=== PATIENT | female | born 1960 | race Caucasian/White ===

== ENCOUNTER 2017-02-14 17:21 | Emergency (ER) | payer MEDICARE, OTHER ==
[2017-02-14] MEDS ORDERED: ASPIRIN 325 MG TABLET.DR PO ONE (17:50)
[2017-02-14 17:51] LABS: Urine Bilirubin Negative (NEGATIVE); Urine Blood Negative /ul (NEGATIVE); Urine Ketone Negative (NEGATIVE); Urine Nitrite Negative (NEGATIVE); Urine Protein Negative (NEGATIVE); Urine Specific Gravity 1.015 SP.GR. (1.005-1.010); Urine Urobilinogen Normal (NORMAL)
[2017-02-14 17:55] LABS: Hemoglobin 11.8 gm/dL (12.5-16.0); Mean Cell Volume 92.1 fl (78-100); Mean Corpuscular Hemoglobin 31.1 pg (27-31); Mean Corpuscular Hgb Conc 33.7 g/dl (32-36); Mean Platelet Volume 8.4 fl (6.0-9.5); Neutrophil # 3.8 K/mm3 (1.3-6.0); Platelet Count 196 K/mm3 (150-450); Red Cell Distribution Width 12.6 % (11.5-14.0); White Blood Count 6.2 K/mm3 (4.0-10.5)
[2017-02-14 17:59] LABS: Urine Appearance Clear; Urine Bacteria 1+; Urine Color Yellow; Urine Hyaline Cast TRACE /LPF; Urine RBC 0-5 /hpf (0-5); Urine WBC 0-5 /hpf (0-5)
[2017-02-14] MEDS ORDERED: ASPIRIN 325 MG TABLET.DR ONE (18:03)
[2017-02-14 18:07] LABS: Prothrombin Time (Patient) 10.5 Seconds (9.4-11.4)
[2017-02-14 18:13] LABS: ALT 20 U/L (19-67); AST 12 U/L (0-48); Albumin * 4.1 gm/dl (3.4-5.0); Alkaline Phosphatase * 87 U/L (50-170); Anion Gap 15.6 mmol/L (6.8-13.8); BUN/Creatinine Ratio 23.1 (9.0-21.6); Bilirubin, Total 0.3 mg/dL (0.0-1.1); Blood Urea Nitrogen 24 mg/dL (3-23); Calcium * 9.4 mg/dL (7.9-10.9); Carbon Dioxide 24.8 mmol/L (24-32.6); Chloride 104 mmol/L (97-106); Glucose * 170 mg/dL (70-110); INR 1.01 INR (0.90-1.10); Lipase 53 U/L (73-393); Partial Thrombolplastin Time 25.7 Seconds (24-32); Potassium 4.4 mmol/L (3.4-4.6); Sodium 140 mmol/L (132-142); Troponin I Less than 0.017 ng/ml (0.00-0.10)
--- OUTSIDE RECORDS SUMMARY | 2017-02-14 18:15 | XMS REPORT | Continuity of Care Document ---
:1960 Author Organization [facility] ([facility]) [place] [address] Phone [phone] Care Team Providers Name Role Phone Provider, No-Primary Care Primary Care Provider Unavailable Source Comments This disclosure is being made pursuant to the Care Everywhere program, applicable federal and state laws, and may not contain all informaitonavailable regarding this patient.[facility] ([facility]) Active Allergies and Adverse Reactions Allergen Noted Date Severity Reactions Comments Penicillin V Potassium 10/05/2016 Urticaria (Hives) Current Medications Prescription Sig. Disp. Refills Start Date End Date Status SYMBICORT 160-4.5 INHALE 1 INHALATION 3 09/18/2016 Active mcg/Actuation PO BID inhaler atenolol 100 mg 10/02/2016 Active tablet HYDROcodone-acetamin Take 1 tablet by 30 tablet 0 10/05/2016 Active ophen 5-325 mg per mouth every 4 hours tablet as needed for Pain. DO NOT EXCEED 3,000 MG ACETAMINOPHEN PER DAY FROM ALL SOURCES ibuprofen 800 mg Take 1 tablet (800 30 tablet 0 10/05/2016 Active tablet mg total) by mouth every 6 hours as needed for Pain. DO NOT EXCEED 3,200 MG IBUPROFEN PER DAY FROM ALL SOURCES chlorhexidine 0.12 % Rinse with 10 ML for 473 mL 0 10/05/2016 Active oral rinse 30 seconds twice daily for 10 days. Swish and spit out excess. Nothing by mouth for 30 minutes. HYDROcodone-acetamin Take 1 tablet by 30 tablet 0 10/19/2016 Active ophen 5-325 mg per mouth every 4 hours tablet as needed for Pain. DO NOT EXCEED 3,000 MG ACETAMINOPHEN PER DAY FROM ALL SOURCES ibuprofen 800 mg Take 1 tablet (800 30 tablet 0 10/19/2016 Active tablet mg total) by mouth every 6 hours as needed for Pain. DO NOT EXCEED 3,200 MG IBUPROFEN PER DAY FROM ALL SOURCES chlorhexidine 0.12 % Rinse with 10 ML for 473 mL 0 10/19/2016 Active oral rinse 30 seconds twice daily for 10 days. Swish and spit out excess. Nothing by mouth for 30 minutes. Active Problems Problem Noted Date Dental caries 10/05/2016 Left facial swelling 10/05/2016 Most Recent Encounters Date Type Specialty Providers Description 01/10/2017 Lab Requisition Pathology Lab Services, [facility] Dx: Basal cell carcinoma of skin of left upper limb, including shoulder Social History Tobacco Use Types Packs/Day Years Used Date Never Smoker Smokeless Tobacco: Never Used Alcohol Use Drinks/Week oz/Week Comments No Last Filed Vital Signs Vital Sign Reading Time Taken Blood Pressure 127/56 10/19/2016 2:33 PM [employer] Pulse 71 10/19/2016 2:33 PM [employer] Temperature 36.8 C (98.2 F) 10/05/2016 1:28 PM [employer] Respiratory Rate 15 10/19/2016 8:02 AM [employer] Height 1.702 m (5' 7.01") 10/19/2016 8:02 AM [employer] Weight 141.1 kg (311 lb 1.1 oz) 10/19/2016 8:02 AM [employer] Body Mass Index 48.71 10/19/2016 8:02 AM [employer] Oxygen Saturation 100% 10/19/2016 8:02 AM [employer] Plan of Care Health Maintenance Due Date Last Done Comments HCV Screening 1960 Hepatitis B Vaccine (1 of 3 - Primary Series) 1960 Tdap Vaccine 01/07/1972 Lipid Disorder Screening 1979 MMR Vaccine 1979 Td Vaccine 1979 Pneumococcal Vaccine (1 of 3 - PCV13) 01/07/1980 Cervical Cancer Screening 1991 Mammogram 2001 Colonoscopy 2011 Influenza Vaccine: Seasonal Completed Results from Last 3 Months DERMATOPATHOLOGY EXAM (2017 4:03 PM) Component Value Range Case Report Surgical Pathology Case: [id number] Authorizing Provider:Lab Services, [facility] Collected: 2017 04:03 PM Pathologist: Lillian Mcclellan MD Received:01/10/2017 04:03 PM Specimens: A) - Skin, other, specify, L anterior shoulder B) - Skin, other, specify, chest Diagnosis A.Skin, left anterior shoulder, shave biopsy: Basal cell carcinoma. B.Skin, chest, shave biopsy: Hemangioma. I have personally reviewed this case and edited the report as necessary. Clinical Information Tissue source/site: Skin - shave - A) L anterior shoulder; B) chest. Pertinent clinical history and findings: A) 1.4 cm psoriasiform patch; B) 0.4 cm erythematous papule. Clinical differential diagnosis: A+B) BCC. Gross Description A.Received in formalin, in a container labeled Irma Krause, date of , and "L anterior shoulder", is a 1.8 x 1.4 x 0.2 cm tierney, crusted shave biopsy.The specimen is inked, quadrisected and submitted entirely in A1. ESF/rls B.Received in formalin, in a container labeled Irma Krause, date of , and "chest", is a 0.9 x 0.7 x 0.1 cm tierney shave biopsy.The specimen is inked, bisected and submitted entirely in B1. ESF/rls Microscopic Description A.Sections of skin show a proliferation of islands of atypical basaloid epithelial cells with peripheral palisading, extending into the dermis. Margins are involved. B.Sections show a well-demarcated dome-shaped papule with an attenuated epidermis and a dermal proliferation of blood vessels containing red blood cells.Cytologically bland endothelial cells line the vessels. Performed by:Willy Neil MD, R4/roselia Specimen Skin - Skin, other, specify
--- OUTSIDE RECORDS SUMMARY | 2017-02-14 18:15 | XMS REPORT | Continuity of Care Document ---
:1960 Author Organization [facility] [place] [address] Care Team Providers Name Role Phone Héctor Short V Primary Care Provider [phone] Source Comments This disclosure is being made pursuant to the AGRIMAPS program and maynot contain all information available regarding this patient.[facility] Active Allergies and Adverse Reactions Allergen Noted Date Severity Reactions Comments Penicillins 01/26/2017 Unknown Current Medications Be aware that medications may not be up to date as of this document. Alwaysverify current medications with the patient. Prescription Sig. Disp. Refills Start End Status Date Date atenolol (TENORMIN) Take 100 mg by mouth Active 100 MG tablet daily. Indications: High Blood Pressure celecoxib Take 200 mg by mouth Active (CELEBREX) 200 MG 2 (two) times daily. capsule Indications: Arthritis glimepiride Take 4 mg by mouth 2 Active (AMARYL) 4 MG (two) times daily. tablet Indications: Type 2 Diabetes estrogens, Take 0.9 mg by mouth Active conjugated, daily. Indications: (PREMARIN) 0.9 MG Postmenopausal tablet Osteoporosis topiramate Take 100 mg by mouth Active (TOPAMAX) 100 MG daily. Indications: tablet Migraine Headache ferrous sulfate 325 Take 325 mg by mouth Active (65 FE) MG tablet 2 (two) times daily. Indications: Anemia From Inadequate Iron in the Body Insulin Lispro Inject 2 Units into Active (HUMALOG KWIKPEN) the skin once. with 100 UNIT/ML SOPN supper injection - pen amLODIPine Take 10 mg by mouth Active (NORVASC) 10 MG daily. Indications: tablet High Blood Pressure fluticasone-salmete Inhale 1 puff into Active rol (ADVAIR DISKUS) the lungs 2 (two) 250-50 MCG/DOSE times daily. Rinse AEPB mouth after use. Indications: Asthma, Chronic Obstructive Lung Disease dexlansoprazole 60 Take 60 mg by mouth Active MG capsule daily. Indications: Gastroesophageal Reflux Disease gabapentin Take 1 oral in a.m. Active (NEURONTIN) 800 MG And 2 oral at at tablet bedtime. Indications: Diabetes with Nerve Disease lisinopril Take 10 mg by mouth Active (PRINIVIL,ZESTRIL) daily. Indications: 10 MG tablet High Blood Pressure metformin Take 1,000 mg by Active (GLUCOPHAGE) 1000 mouth daily with MG tablet breakfast. Indications: Type 2 Diabetes venlafaxine HCl Take 225 mg by mouth Active (EFFEXOR-XR) 75 MG daily. Indications: 24 hr capsule Generalized Anxiety Disorder solifenacin Take 10 mg by mouth Active (VESICARE) 10 MG 2 (two) times daily. tablet Indications: Urinary Incontinence fluticasone 2 sprays by Nasal Active (FLONASE) 50 route daily. to each MCG/ACT nasal spray nostril Indications: Allergic Rhinitis prazosin Take 2 mg by mouth Active (MINIPRESS) 2 MG nightly. capsule Indications: High Blood Pressure traZODone (DESYREL) Take 2 tabs at at Active 100 MG tablet bedtime Indications: Anxiety Disorder HYDROcodone-acetami Take 1 tablet by 90 tablet 0 01/27/20 Active nophen (NORCO) mouth every 8 17 5-325 MG per tablet (eight) hours as needed for Pain Earliest Fill Date: 01/26/17. alprazolam (XANAX) TAKE 1 TABLET BY 30 tablet 0 01/28/20 Active 2 MG tablet MOUTH EVERY NIGHT AT 17 BEDTIME cyclobenzaprine TAKE 1 TABLET BY 90 tablet 0 02/04/20 Active (FLEXERIL) 10 MG MOUTH THREE TIMES 17 tablet DAILY AND 1 ADDITIONAL TABLET NEEDED montelukast TAKE 1 TABLET BY 90 tablet 0 02/15/20 Active (SINGULAIR) 10 MG MOUTH EVERY EVENING 17 tablet montelukast Take 10 mg by mouth Discontinued (SINGULAIR) 10 MG nightly. 017 tablet Indications: Asthma HYDROcodone-acetami Take 1 tablet by Discontinued nophen (NORCO) mouth every 8 017 5-325 MG per tablet (eight) hours as needed for Pain. alprazolam (XANAX) Take 2 mg by mouth Discontinued 2 MG tablet nightly. 017 Active Problems Problem Noted Date Asthma COPD (chronic obstructive pulmonary disease) (HCC) Urinary incontinence Chronic pain Hypertension Osteoarthritis Overview: elbows Diabetes mellitus (HCC) Migraines Most Recent Encounters Date Type Specialty Providers Description 02/14/2017 Refill Family Medicine Héctor Short V, DO 02/03/2017 Refill Family Medicine Héctor Short V, DO 01/27/2017 Refill Family Medicine Héctor Short V, DO 01/26/2017 Refill Family Medicine Jamilah Veloz, RN 01/20/2017 Scanned Document Family Medicine Provider, Not In System Social History Tobacco Use Types Packs/Day Years Used Date Never Smoker Alcohol Use Drinks/Week oz/Week Comments No Plan of Care Health Maintenance Due Date Last Done Comments Pneumococcal Medium Risk 19-64 yo (1 of 1 - PPSV23) 01/07/1980 Tetanus/Pertussis (1 - Tdap) 01/07/1980 Pap Smear 1982 Colonoscopy 2011 Mammogram 2011 Well Adult Visit 2011 Influenza Immunization (#1) 2016 Results from Last 3 Months Not on file
--- NOTE | 2017-02-14 18:31 | ERNOTE ---
Chest Pain/Cardiac HPI Date of Service: 02/14/17 Chief Complaint: Chest Pain Time Seen by Provider: 02/14/17 17:40 Source: patient Exam Limitations: no limitations Immunizations: IMMUNIZATION HX Immunizations Up to Date No History of Influenza Vaccine No Hx Pneumococcal Vaccination No Allergies/Adverse Reactions: Allergies Penicillins Allergy (Severe, Verified 02/14/17 17:29) Hives Home Medications: HOME MEDICATIONS Atenolol [Tenormin] 100 mg PO DAILY 11/24/15 [Last Taken Unknown] Buspirone HCl [Buspar] 30 mg PO HS 11/24/15 [Last Taken Unknown] Celecoxib [Celebrex] 200 mg PO BID PRN 11/24/15 [Last Taken Unknown] Cyclobenzaprine HCl [Flexeril] 10 mg PO HS 11/24/15 [Last Taken Unknown] Estrogens, Conjugated [Premarin] 0.9 mg PO DAILY 11/24/15 [Last Taken Unknown] Lisinopril [Prinivil] 10 mg PO DAILY 11/24/15 [Last Taken Unknown] Montelukast Sodium [Singulair] 10 mg PO DAILY 11/24/15 [Last Taken Unknown] Solifenacin Succinate [Vesicare] 10 mg PO BID 11/24/15 [Last Taken Unknown] Topiramate [Topamax] 100 mg PO BID 11/24/15 [Last Taken Unknown] metFORMIN HCL [Glucophage Xr] 1,000 mg PO DAILY 11/24/15 [Last Taken Unknown] traZODone HCL [Desyrel] 100 mg PO HS 11/24/15 [Last Taken Unknown] Hydrocodon-Acetamin 7.5-325/15 1 tab PO BID 06/26/16 [Last Taken Unknown] Ondansetron HCl [Zofran] 4 mg PO Q6H PRN #12 tablet 06/26/16 [Last Taken Unknown ] lamoTRIgine [Lamictal] 150 mg PO DAILY 06/26/16 [Last Taken Unknown] Ranitidine HCl [Zantac] 150 mg PO BID #60 tab 10/09/16 [Last Taken Unknown] Alprazolam 2 mg PO HS 02/14/17 [Last Taken Unknown] Amlodipine/Atorvastatin [Amlodipine-Atorvast 10-10 mg] 1 each PO DAILY 02/14/17 [Last Taken Unknown] Fluticasone/Salmeterol [Advair 250-50 Diskus] 1 each IH DAILY 02/14/17 [Last Taken Unknown] Narrative: Patient presents to the ED for chest pain. She relates that she had a squeezing anterior chest pain a little after 4pm today. This lasted a couple of minutes so she took a nitro that she has at home and this relieved the pain. She states she has never had pain like this before. She relates no pleuritic pain. She did have a knee replacement 1 year ago. Has not noticed any other specific DVT Sx. No other recent illnesses. No abdominal pain. No vomiting. Nothing made this better or worse. Pain resolved now. She did not think she was SOB but SO thinks she was. Timing: gone now Severity/Quality: moderate Location: substernal Chest Pain Radiation: no radiation Activities at Onset: none Modifying Factors - Improves: Present: nothing Modifying Factors - Worsens: Present: nitroglycerin Nitro Today/Relief: 0.4 mg x 1 Associated Symptoms: Absent: headache, diaphoresis, fever/chills, nausea, vomiting, abdominal pain Prior Treatment: Denies: recently seen Review of Systems - Review of Systems Constitutional: Absent: fever ENT: Absent: sore throat Respiratory: Present: See HPI Cardiology: Present: See HPI Gastrointestinal/Abdominal: Absent: abdominal pain Genitourinary: Absent: dysuria All Other Systems: All systems neg except as marked - Patient's Past Medical History Patient History - Medical: GERD Patient History - Cardiac/Respiratory: Asthma, CVA/Stroke, Hypertension, Myocardial Infarction Patient History - Cancer: No Hx of Cancer Patient History - Surgical Procedures: , Total Knee Replacement Patient History - Other: None - Social History Living Situations: home Abuse History: No History of abuse Psych History: No pertinent hx Smoking Status: Never smoker Alcohol Use: none Drug Use: none - Immunizations Immunizations Up to Date: No Hx Pneumococcal Vaccination: No History of Influenza Vaccine: No Physical Exam - Physical Exam General Appearance: Present: alert, no apparent distress Eye Exam: Normal inspection: bilateral, PERRL: bilateral Ears, Nose, Throat: Present: normal ENT inspection Neck: Present: normal inspection Respiratory: Present: no respiratory distress, normal breath sounds, no accessory muscle use, lungs clear Cardiovascular/Chest: Present: regular rate, rhythm, normal peripheral pulses Gastrointestinal/Abdominal: Present: normal bowel sounds, nontender, soft Back Exam: Present: normal range of motion Extremity Exam: Present: other - no calf tenderness or clear DVT findings. Neurological Exam: Present: alert, normal mood/affect, no motor/sensory deficits Skin Exam: Absent: skin rash ED Progress - Results and Orders Patient's Lab Results:: I have reviewed the patient's lab results. - Vital Signs Patient's Vital Signs:: I have reviewed the patient's vital signs. - NS Vital Signs: Vital Signs 02/14/17 17:25 Temperature 36.4 C L Pulse Rate 83 Respiratory 20 Rate Blood Pressure 162/92 O2 Sat by Pulse 97 Oximetry - EKG EKG read: Interp. by me EKG Comments: NSR rate 78. Non-specific ST/T wave changes, no clear evidence of STEMI. - X-Ray X-Ray #1 X-Ray: chest Interpretation: Reviewed by me X-ray Comments: I reviewed CXR result per radiology - Progress/Reassessment Chief Complaint: Chest Pain Progress Note-Subjective: 02/14/17 19:31 Elevated d-dimer. Patient was requesting to go home but I talked her into staying for CT. - Transfer of Care Physician Sign Out: David Alex Receiving Physician: Michael Cardenas Pending Results: CT/MRI results Departure - Departure Clinical Impression: Atypical chest pain
[2017-02-14 21:18] VITALS: BP 148/86
== END 2017-02-14 21:18 | disposition home or self-care (01) ==
LOC: ER 17:21
DX: R07.89 Other chest pain (principal); K21.9 Gastro-esophageal reflux disease without esophagitis; I10 Essential (primary) hypertension

== ENCOUNTER 2017-08-09 14:49 | Emergency (ER) | payer MEDICARE, OTHER ==
[2017-08-09 15:05] VITALS: BP 144/86
--- NOTE | 2017-08-09 15:22 | ERNOTE ---
Medical Problem HPI - Narrative Date of Service: 08/09/17 - General Chief Complaint: Back Pain Time Seen by Provider: 08/09/17 15:10 Source: patient Exam Limitations: no limitations - Immun/Allergies/Home Medications Immunizations: IMMUNIZATION HX Immunizations Up to Date Yes History of Influenza Vaccine Yes Hx Pneumococcal Vaccination No Allergies/Adverse Reactions: Allergies Penicillins Allergy (Severe, Verified 08/09/17 15:03) Hives morphine Adverse Reaction (Verified 08/09/17 15:03) Home Medications: HOME MEDICATIONS Atenolol [Tenormin] 100 mg PO DAILY 11/24/15 [Last Taken Unknown] Buspirone HCl [Buspar] 30 mg PO HS 11/24/15 [Last Taken Unknown] Celecoxib [Celebrex] 200 mg PO BID PRN 11/24/15 [Last Taken Unknown] Cyclobenzaprine HCl [Flexeril] 10 mg PO HS 11/24/15 [Last Taken Unknown] Estrogens, Conjugated [Premarin] 0.9 mg PO DAILY 11/24/15 [Last Taken Unknown] Lisinopril [Prinivil] 10 mg PO DAILY 11/24/15 [Last Taken Unknown] Montelukast Sodium [Singulair] 10 mg PO DAILY 11/24/15 [Last Taken Unknown] Solifenacin Succinate [Vesicare] 10 mg PO BID 11/24/15 [Last Taken Unknown] Topiramate [Topamax] 100 mg PO BID 11/24/15 [Last Taken Unknown] metFORMIN HCL [Glucophage Xr] 1,000 mg PO DAILY 11/24/15 [Last Taken Unknown] traZODone HCL [Desyrel] 100 mg PO HS 11/24/15 [Last Taken Unknown] Hydrocodon-Acetamin 7.5-325/15 1 tab PO BID 06/26/16 [Last Taken Unknown] Ondansetron HCl [Zofran] 4 mg PO Q6H PRN #12 tablet 06/26/16 [Last Taken Unknown ] lamoTRIgine [Lamictal] 150 mg PO DAILY 06/26/16 [Last Taken Unknown] Ranitidine HCl [Zantac] 150 mg PO BID #60 tab 10/09/16 [Last Taken Unknown] Alprazolam 2 mg PO HS 02/14/17 [Last Taken Unknown] Amlodipine/Atorvastatin [Amlodipine-Atorvast 10-10 mg] 1 each PO DAILY 02/14/17 [Last Taken Unknown] Fluticasone/Salmeterol [Advair 250-50 Diskus] 1 each IH DAILY 02/14/17 [Last Taken Unknown] Advair 250-50 Diskus 07/11/17 [Last Taken Unknown] Albuterol Sulfate 0.63 MG/3ML 07/11/17 [Last Taken Unknown] Combivent Respimat Inhal Belt 07/11/17 [Last Taken Unknown] Dexilant 07/11/17 [Last Taken Unknown] Glimepiride 07/11/17 [Last Taken Unknown] Iron 07/11/17 [Last Taken Unknown] Lyrica 07/11/17 [Last Taken Unknown] Prazosin HCl 07/11/17 [Last Taken Unknown] Venlafaxine HCl 07/11/17 [Last Taken Unknown] - History of Present History Narrative: Pt. comes in with c/o R lateral chest wall pain that worsens with movement and deep breathing. Pt. denies any SOB, cardiac chest pain, NVD, or alleviating factors. Pt. denies any prehospital treatment. Review of Systems - Review of Systems Constitutional: Present: no symptoms reported. Absent: recent illness, fever, chills, weakness, fatigue, malaise EYE: Present: no symptoms reported ENT: Present: no symptoms reported Respiratory: Present: no symptoms reported. Absent: shortness of breath, cough , wheezing Cardiology: Present: chest pain - R lateral Gastrointestinal/Abdominal: Present: no symptoms reported. Absent: nausea, vomiting, diarrhea, abdominal pain Genitourinary: Present: no symptoms reported. Absent: frequency, decreased urinary output Musculoskeletal: Present: muscle pain - R pec. Absent: back pain, joint pain Skin: Present: no symptoms reported. Absent: rash, change in hair/nails Neurological: Present: no symptoms reported. Absent: headache, dizziness/light- headedness, tingling, tremors Endocrine: Present: no symptoms reported. Absent: excessive sweating, flushing , intolerance to heat, intolerance to cold, increased hunger, increased thirst, increased urine, unexplained weight gain, unexplained weight loss Hematologic/Lymphatic: Present: no symptoms reported. Absent: easy bruising, easy bleeding All Other Systems: All systems neg except as marked - Patient's Past Medical History Patient History - Medical: GERD, Obesity Patient History - Cardiac/Respiratory: Asthma, CVA/Stroke, Hypertension, Myocardial Infarction Patient History - Cancer: No Hx of Cancer Patient History - Surgical Procedures: , Total Knee Replacement Patient History - Other: None - Social History Abuse History: No History of abuse Psych History: No pertinent hx Smoking Status: Never smoker Have you smoked in the past 12 months: No - Immunizations Immunizations Up to Date: Yes Hx Pneumococcal Vaccination: No History of Influenza Vaccine: Yes Physical Exam - Physical Exam General Appearance: Present: wd/wn, alert, no apparent distress Head Exam: Present: normal inspection, no evidence of injury Eye Exam: Normal inspection: bilateral, PERRL: bilateral, EOMI: bilateral Ears, Nose, Throat: Present: normal ENT inspection, normal pharynx Neck: Present: normal inspection, nontender. Absent: lymphadenopathy (R), lymphadenopathy (L) Respiratory: Present: no respiratory distress, normal breath sounds, no accessory muscle use, lungs clear Cardiovascular/Chest: Present: regular rate, rhythm, no murmur, normal peripheral pulses, chest tenderness - R lateral chest where pt. has palpable lumps in chest tissue Gastrointestinal/Abdominal: Present: normal bowel sounds, nontender, nondistended, soft, no organomegaly Back Exam: Present: normal inspection, normal range of motion, no CVA tenderness , no vertebral tenderness Extremity Exam: Present: normal inspection, non-tender, normal range of motion, no edema Neurological Exam: Present: alert, oriented, normal mood/affect, no motor/ sensory deficits Skin Exam: Present: normal color, warm/dry. Absent: pallor, skin rash ED Progress - Date and Time Seen: Date and Time: 08/09/17 16:[address] Martines at request of pt. and she is not taking any new pts at this time. Discussed with Dr Lopez and he accepts pt. and agrees to follow up wand requests me to order outpt. mammo and US. - Results and Orders Patient's Lab Results:: I have reviewed the patient's lab results. - Vital Signs Patient's Vital Signs:: I have reviewed the patient's vital signs. Vital Signs: Vital Signs 08/09/17 15:00 Temperature 37.1 C Pulse Rate 86 Respiratory 14 Rate Blood Pressure 144/86 O2 Sat by Pulse 100 Oximetry - X-Ray X-Ray #1 X-Ray: chest Interpretation: Reviewed by me - No acute CP process - Progress/Reassessment Chief Complaint: Back Pain Departure Clinical Impression: Breast lump - Departure Disposition: Home self-care Condition: Good Instructions: Breast Tenderness Additional Instructions: Please follow up with outpatient radiology and Dr brian Jean-Baptiste as ordered for breast lumps. Referrals: Michael Jerez MD [Staff Physician] -
[2017-08-09 15:35] LABS: Hematocrit 30.8 % (37.0-47.0); Mean Cell Volume 93.3 fl (78-100); Mean Corpuscular Hemoglobin 30.3 pg (27-31); Mean Corpuscular Hgb Conc 32.5 g/dl (32-36); Mean Platelet Volume 8.5 fl (6.0-9.5); Neutrophil # 3.1 K/mm3 (1.3-6.0); Neutrophil % 63.9 % (42-75.0); Platelet Count 165 K/mm3 (150-450); White Blood Count 4.8 K/mm3 (4.0-10.5)
[2017-08-09 15:43] LABS: Albumin * 3.5 gm/dl (3.4-5.0); Anion Gap 13.5 mmol/L (6.8-13.8); Bilirubin, Total 0.3 mg/dL (0.0-1.1); Ca. Corrected For Albumin 8.6 mg/dL (8.4-10.2); Calcium * 8.5 mg/dL (7.9-10.9); Carbon Dioxide 27.1 mmol/L (24-32.6); Potassium 4.6 mmol/L (3.4-4.6); Total Protein 7.4 gm/dL (6.2-8.2)
== END 2017-08-09 16:40 | disposition home or self-care (01) ==
LOC: ER 14:49
DX: N63.10 Unspecified lump in the right breast, unspecified quadrant (principal)